=== PATIENT | female | born 1970 | race African-American/Black ===

== ENCOUNTER 2019-01-14 20:22 | Emergency (ER) | payer OTHER ==
[2019-01-14 20:44] VITALS: BP 117/72
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
[2019-01-14] MEDS ORDERED: IBUPROFEN 800 MG TAB PO ONE (23:26)
[2019-01-14] MEDS ORDERED: HYDROcodone/ACETAMINOPHEN 5-325 MG TAB PO ONE (23:26)
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
== END 2019-01-15 00:41 | disposition home or self-care (01) ==
LOC: ED 20:22
DX: S39.012A Strain of muscle, fascia and tendon of lower back, initial encounter (principal); S00.83XA Contusion of other part of head, initial encounter; Z79.1 Long term (current) use of non-steroidal anti-inflammatories (NSAID); Z79.899 Other long term (current) drug therapy; V49.49XA Driver injured in collision with other motor vehicles in traffic accident, initial encounter; Y93.89 Activity, other specified; Y99.8 Other external cause status; Y92.89 Other specified places as the place of occurrence of the external cause
CPT/HCPCS: 70486; 72125